=== PATIENT | female | born 1950 | race Caucasian/White ===

== ENCOUNTER 2016-09-11 07:26 | Day surgery (SDC) | payer OTHER, MEDICARE ==
[~2016-09-11 07:26] MED LIST: ANTIVERT12.5 MG PO; LISINOPRIL-HCT1 EAC3 PO; LISINOPRIL-HCTZ PO; NORCO 5/325 TAB1 TAB PO; PROZAC20 MG PO; THERA1 TAB PO; TYLENOL650 MG PO; VITAMIN D5000 UNI1 PO; ZESTORETIC1 TAB PO; [UNRECOGNIZED DRUG - OTHER]
[2016-09-13] MEDS ORDERED: NUCYNTA50 M1 PO (09:21)
[2016-09-13] MEDS ORDERED: ASPIRIN81 M1 PO (09:57)
== END 2016-09-13 12:30 ==
LOC: SRG 07:26 → SHSA 08:41 → ORW 12:04 → PACU 16:05 → 5WD 17:06
PROC: 0HTV0ZZ Resection of Bilateral Breast, Open Approach (ICD-10-PCS; principal; 2016-09-11)
PROC: 07B60ZX Excision of Left Axillary Lymphatic, Open Approach, Diagnostic (ICD-10-PCS; 2016-09-11)
PROC: 07B50ZX Excision of Right Axillary Lymphatic, Open Approach, Diagnostic (ICD-10-PCS; 2016-09-11)
PROC: 0HRV0JZ Replacement of Bilateral Breast with Synthetic Substitute, Open Approach (ICD-10-PCS; 2016-09-11)
PROC: 0HX4XZZ Transfer Neck Skin, External Approach (ICD-10-PCS; 2016-09-11)
DX: D05.11 Intraductal carcinoma in situ of right breast (principal); D24.2 Benign neoplasm of left breast; D22.4 Melanocytic nevi of scalp and neck; I10 Essential (primary) hypertension; E78.5 Hyperlipidemia, unspecified; E66.9 Obesity, unspecified; M79.7 Fibromyalgia; E55.9 Vitamin D deficiency, unspecified; F41.9 Anxiety disorder, unspecified; Z79.899 Other long term (current) drug therapy; Z88.0 Allergy status to penicillin; Z88.2 Allergy status to sulfonamides; Z91.048 Other nonmedicinal substance allergy status; Z90.49 Acquired absence of other specified parts of digestive tract; Z90.710 Acquired absence of both cervix and uterus; Z98.890 Other specified postprocedural states
CPT/HCPCS: A9520; A9541; C1713; C1781; C1789; J0690; J2250; J2795; J3010; J3370

== ENCOUNTER 2016-10-05 06:06 | Day surgery (SDC) | payer OTHER, MEDICARE ==
[~2016-10-05 06:06] MED LIST changes: +ASPIRIN81 M1 PO; +NUCYNTA50 M1 PO
== END 2016-10-05 11:30 ==
LOC: SHSA 06:06 → ORW 08:03 → PACU 09:22 → SHSA 09:54
PROC: 0H9T0ZZ Drainage of Right Breast, Open Approach (ICD-10-PCS; principal; 2016-10-05)
PROC: 0JB60ZZ Excision of Chest Subcutaneous Tissue and Fascia, Open Approach (ICD-10-PCS; 2016-10-05)
DX: T86.828 Other complications of skin graft (allograft) (autograft) (principal); L76.32 Postprocedural hematoma of skin and subcutaneous tissue following other procedure; I10 Essential (primary) hypertension; E78.5 Hyperlipidemia, unspecified; M79.7 Fibromyalgia; Z79.82 Long term (current) use of aspirin; Z79.899 Other long term (current) drug therapy; Z88.0 Allergy status to penicillin; Z88.2 Allergy status to sulfonamides; Z91.048 Other nonmedicinal substance allergy status; Z85.3 Personal history of malignant neoplasm of breast; Z90.49 Acquired absence of other specified parts of digestive tract; Z90.13 Acquired absence of bilateral breasts and nipples; Z98.890 Other specified postprocedural states
CPT/HCPCS: J0690; J2175; J2250; J3010

== ENCOUNTER 2016-12-10 20:28 | Emergency (ER) | payer OTHER, MEDICARE ==
[2016-12-10] MEDS ORDERED: KEFLEX500 M4 PO (21:20)
== END 2016-12-10 21:39 ==
LOC: EDMED 20:28
DX: L03.114 Cellulitis of left upper limb (principal); I10 Essential (primary) hypertension; Z90.49 Acquired absence of other specified parts of digestive tract; Z79.899 Other long term (current) drug therapy